=== PATIENT | male | born 1985 | race Two or more races ===

== ENCOUNTER 2023-12-14 19:32 | Emergency (ER) | payer BC, OTHER ==
[~2023-12-14] VITALS: Ht 175.3 cm; Wt 85.7 kg
[2023-12-14 21:07] LABS: Basophils # (auto) 0 10 ^3/uL (0-0.2); Basophils % (auto) 0.2 % (0.0-2.0); Eosinophils # (auto) 0.2 10 ^3/uL (0-0.8); Eosinophils % (auto) 1.1 % (0.0-7.0); Hematocrit 43.3 % (41.0-53.0); Hemoglobin 14.4 g/dL (13.5-17.5); Lymphocytes % (auto) 12.1 % (10.0-50.0); Mean Corpuscular Hemoglobin 29.3 pg (28.0-32.0); Mean Corpuscular Hgb Conc. 33.2 g/dL (32.0-36.0); Mean Corpuscular Volume 88.3 fL (80.0-100.0); Monocytes # (auto) 0.8 10 ^3/uL (0-1.3); Monocytes % (auto) 4.8 % (0.0-12.0); Neutrophils # (auto) 13.5 10 ^3/uL (1.6-8.6); Neutrophils % (auto) 81.8 % (37.0-80.0); Nucleated Red Blood Cells % 0.1 %; Red Cell Distribution Width 13.9 % (11.8-14.3); White Blood Cell 16.5 10^3/uL (4.4-10.8)
[2023-12-14 21:22] LABS: INR 1.02 (0.9-1.15); Prothrombin Time 10.8 sec (9.3-11.8)
[2023-12-14 21:29] LABS: Alanine Aminotransferase 16 U/L (7-40); Albumin 4.3 g/dL (3.2-4.8); Alkaline Phosphatase 80 U/L (46-116); Anion Gap 8 (5-15); Aspartate Aminotransferase 38 U/L (13-40); BUN/Creatinine Ratio 8.1 (10.0-20.0); Bilirubin, Total 0.3 mg/dL (0.2-1.0); Blood Alcohol 221.6 mg/dL (<10); Blood Urea Nitrogen 7 mg/dL (9-23); Calcium 8.8 mg/dL (8.5-10.1); Carbon Dioxide 25 mmol/L (20-30); Chloride 108 mmol/L (98-107); Glucose 101 mg/dL (74-106); Potassium 3.6 mmol/L (3.5-5.1); Sodium 141 mmol/L (136-145); Total Protein 7.3 g/dL (5.7-8.2)
[2023-12-14] MEDS: cefTRIAXone 1GM/50ML D5W 50 ML IV ONE (22:02)
[2023-12-14] MEDS: KETOROLAC TROMETH 30 MG/ML 1ML VIAL IV ONE (22:03)
[2023-12-14 22:11] VITALS: PULSE 81; RESP 16; O2SAT 98
[2023-12-14 22:29] VITALS: BP 121/69; PULSE 81; RESP 16; TEMP 98.4; O2SAT 98
== END 2023-12-14 22:47 | disposition short-term general hospital (02) ==
LOC: EDBD 19:32 → ER 19:32
DX: S00.03XA Contusion of scalp, initial encounter (principal); S06.6X0A Traumatic subarachnoid hemorrhage without loss of consciousness, initial encounter; R41.82 Altered mental status, unspecified; J18.9 Pneumonia, unspecified organism; G93.5 Compression of brain; R07.89 Other chest pain; Y04.2XXA Assault by strike against or bumped into by another person, initial encounter; Y93.89 Activity, other specified; Y92.89 Other specified places as the place of occurrence of the external cause; Y99.8 Other external cause status
CPT/HCPCS: 36415; 70450; 71045; 72125; 80053; 80320; 82542; 85025; 85610; 85730; 96365; 96375; 99291; J0696; J1885

== ENCOUNTER 2023-12-21 12:58 | Emergency (ER) | payer BC ==
[~2023-12-21] VITALS: Ht 188 cm; Wt 100.0 kg
[2023-12-21 15:01] VITALS: PULSE 71; RESP 16; O2SAT 98
[2023-12-21 15:05] VITALS: BP 153/57; PULSE 82; RESP 17; TEMP 97.9; O2SAT 97
[2023-12-21] MEDS: HYDROcodone-ACET 10/325MG TAB PO ONE (15:11)
== END 2023-12-21 15:42 | disposition short-term general hospital (02) ==
LOC: ER 12:58 → EDBD 12:58 → ER 15:42
DX: S09.8XXD Other specified injuries of head, subsequent encounter (principal); Y08.89XD Assault by other specified means, subsequent encounter
CPT/HCPCS: 70450